=== PATIENT | female | born 1970 | race Caucasian/White ===

== ENCOUNTER → 2018-03-10 | Outpatient (CLI) | payer BC ==
[~2018-03-10] MED LIST: ZANTAC 7575 MG PO
== END ==
LOC: MC.RAD 08:20
DX: Z12.31 Encounter for screening mammogram for malignant neoplasm of breast (principal)

== ENCOUNTER 2018-03-13 01:27 | Emergency (ER) | payer BC ==
[2018-03-13 01:30] VITALS: BP 110/86; TEMP 97
[2018-03-13 01:44] LABS: COLLECTION METHOD CLEAN CATCH
[2018-03-13 01:52] LABS: MUCOUS Present /lpf; PH 6 (5-8); URINE APPEARANCE Hazy; URINE BACTERIA Rare /hpf; URINE BILIRUBIN Negative (NEGATIVE); URINE BLOOD 2+ (NEGATIVE); URINE COLOR Yellow; URINE GLUCOSE Negative (NEGATIVE); URINE KETONE Negative (NEGATIVE); URINE LEUKOCYTE ESTERASE 1+ (NEGATIVE); URINE NITRATE Negative (NEGATIVE); URINE PROTEIN(semi-quant) Negative (NEGATIVE); URINE UROBILINOGEN Negative (NEGATIVE)
[2018-03-13] MEDS ORDERED: COZAAR 25MG25 MG/TAB PO (01:54)
[2018-03-13] MEDS ORDERED: [UNRECOGNIZED DRUG - REMARK] (01:54)
[2018-03-13] MEDS ORDERED: NEXIUM 20MG20 MG PO (01:55)
[2018-03-13] MEDS ORDERED: [UNRECOGNIZED DRUG - REMARK] (01:55)
[2018-03-13] MEDS ORDERED: [UNRECOGNIZED DRUG - REMARK] (01:56)
[2018-03-13] MEDS ORDERED: ZYRTEC5 MG PO (01:57)
[2018-03-13] MEDS ORDERED: OMNICEF 300MG300 MG PO (02:08)
[2018-03-13 02:23] VITALS: PULSE 98
== END 2018-03-13 02:23 | disposition home or self-care (01) ==
LOC: COL.ER 01:27
PROVIDERS: Physician Assistant
DX: N12 Tubulo-interstitial nephritis, not specified as acute or chronic (principal)
CPT/HCPCS: J0696

== ENCOUNTER → 2018-09-01 | Outpatient (CLI) | payer BC ==
[~2018-09-01] MED LIST changes: +COZAAR 25MG25 MG/TAB PO; +COZAAR100 MG PO; +DESYREL 50MG50 MG PO; +EFFEXOR XR75 MG/CAP PO; +HCTZ 25MG TAB25 MG PO; +NEXIUM 20MG20 MG PO; +OMNICEF 300MG300 MG PO; +ZYRTEC5 MG PO; +[UNRECOGNIZED DRUG - REMARK]; +[UNRECOGNIZED DRUG - REMARK]; +[UNRECOGNIZED DRUG - REMARK]
== END ==
LOC: ZCOL.LAB 14:25
DX: J18.9 Pneumonia, unspecified organism (principal)

== ENCOUNTER → 2018-09-02 | Outpatient (CLI) | payer BC | LOC: COL.RAD 09:21 | DX: J18.9 Pneumonia, unspecified organism (principal); R79.89 Other specified abnormal findings of blood chemistry | CPT/HCPCS: Q9967 ==

== ENCOUNTER 2018-09-23 07:10 | Observation (INO) | payer BC ==
[~2018-09-23] VITALS: Ht 157.5 cm; Wt 80.6 kg
[2018-09-23] MEDS ORDERED: ZYRTEC 10MG10 MG PO (07:42)
[2018-09-23] MEDS ORDERED: PREDNISONE20 MG (07:42)
[2018-09-23] MEDS ORDERED: OMNICEF 300MG300 MG PO (07:42)
[2018-09-23] MEDS ORDERED: NEXIUM 20MG20 MG (07:42)
[2018-09-23] MEDS ORDERED: FLONASE NASAL S16 GM NS (07:43)
[2018-09-23] MEDS ORDERED: VENTOLIN0.09 MG IH (07:43)
[2018-09-23] MEDS ORDERED: ALBUTEROL0.83 MG/ML (07:43)
[2018-09-23 07:52] LABS: BASO % 0.2 % (0.0-2.0); GRAN # 4.1 (1.4-6.5); GRAN % 61.9 % (42.2-75.2); HEMATOCRIT 38.5 % (37.0-47.0); HEMOGLOBIN 13.8 g/dl (12.5-16.0); LYMPH # 2.1 (1.2-3.4); LYMPH % 31.9 % (20.0-51.0); MEAN CELL VOLUME 90 fl (80.0-100.0); MEAN CORPUSCULAR HEMOGLOBIN 32 pg (27.0-31.0); MEAN CORPUSCULAR HGB CONC 36 g/dl (33.0-37.0); MEAN PLATELET VOLUME 9.1 fl (7.4-10.4); MONO # 0.4 (0.1-0.6); MONO % 5.7 % (1.7-9.3); PLATELET COUNT 270 K/mm3 (130-400); RED BLOOD COUNT 4.28 M/mm3 (4.10-5.30)
[2018-09-23 08:06] LABS: ALANINE AMINOTRANSFERASE 42 U/L (9-52); ALKALINE PHOSPHATASE 118 U/L (50-136); ANION GAP 18 mmol/L (7-16); AST,SGOT 81 U/L (15-37); BILIRUBIN,TOTAL 0.7 mg/dL (0.0-1.0); BLOOD UREA NITROGEN 22 mg/dL (7-17); CALCIUM 8.7 mg/dL (8.4-10.2); CARBON DIOXIDE 20 mmol/L (22-30); CHLORIDE 91 mmol/L (98-107); GLUCOSE 195 mg/dL (74-106); MAGNESIUM 1.6 mg/dL (1.6-2.3); POTASSIUM 3.9 mmol/L (3.4-5.0); SODIUM 129 mmol/L (137-145); TOTAL PROTEIN 7.3 gm/dL (6.4-8.2)
[2018-09-23 08:07] LABS: C-REACTIVE PROTEIN 0.5 mg/dL (0.0-0.9)
[2018-09-23 08:11] LABS: INR 1.1 (0.8-3.0); PROTHROMBIN TIME 12.8 SECONDS (9.7-12.8)
[2018-09-23 08:14] LABS: PARTIAL THROMBOPLASTIN TIME 31.8 SECONDS (26.0-37.0)
[2018-09-23 08:15] LABS: TROPONIN-I < 0.012 ng/mL (0.000-0.035)
[2018-09-23 10:20] LABS: COLLECTION METHOD CLEAN CATCH
[2018-09-23 10:24] LABS: CALCIUM 7.6 mg/dL (8.4-10.2); CREATININE, serum 0.93 (0.52-1.25); POTASSIUM 3.9 mmol/L (3.4-5.0)
[2018-09-23 10:34] LABS: PH 7 (5-8); SQUAMOUS EPITHELIAL 0-2 /hpf; URINE APPEARANCE Clear; URINE BACTERIA None Seen /hpf; URINE BILIRUBIN Negative (NEGATIVE); URINE BLOOD Negative (NEGATIVE); URINE COLOR Yellow; URINE GLUCOSE Negative (NEGATIVE); URINE KETONE Negative (NEGATIVE); URINE LEUKOCYTE ESTERASE Negative (NEGATIVE); URINE NITRATE Negative (NEGATIVE); URINE PROTEIN(semi-quant) Negative (NEGATIVE); URINE RBC 0-2 /hpf; URINE UROBILINOGEN Negative (NEGATIVE)
[2018-09-23 11:06] LABS: STREP SCREEN NEGATIVE
[2018-09-23] MEDS ORDERED: DOXYCYCLINE 10100 MG (12:08)
--- NOTE | 2018-09-23 12:10 | NUR ---
Pt arrived to room 309 at this time. She is A/O x3. Her breathing is even and unlabored on RA. Pt has intermittent cough present. Denies any pain. Intermittent nausea present, will continue to clear liquid diet until pt is better tolerating PO. POC discussed with patient who verbalizes understanding. IVF started to RFA, will continue to monitor.
[2018-09-23 12:28] VITALS: BP 101/65; PULSE 69; TEMP 97.8
[2018-09-23 16:22] VITALS: BP 103/52; PULSE 97; TEMP 98.2
--- NOTE | 2018-09-23 18:39 | NUR ---
Pt report given to TEX Triana. Pt rested well since arriving to the floor. She reports vomitting but never visualized by nursing staff. PRN Babak administered. Pt reporting ZELAYA at this time. Attempting to eat dinner, baked potato and sprite. Pt encouraged to drink fluids but to avoid water. IVF infusing without complications. Pt denies needs at this time. Call light within reach.
[2018-09-23 19:25] VITALS: BP 105/55; PULSE 91; TEMP 98.2
--- NOTE | 2018-09-23 21:35 | NUR ---
Resting in bed. Assessment complete. Lungs clear. Heart sounds normal. Bowels active x4. Pulses strong throughout. No edema noted. IV to right forearm without complications. Denies pain. Denies needs at this time. Call light in reach.
[2018-09-23 23:32] VITALS: BP 107/54; PULSE 102; TEMP 98.7
--- NOTE | 2018-09-24 00:09 | NUR ---
Resting in bed. Call light in reach.
[2018-09-24 03:17] VITALS: BP 110/63; PULSE 66; TEMP 98.6
--- NOTE | 2018-09-24 06:06 | NUR ---
Patient had uneventful night. Provided with PRN motrin for headache x1 dose. Resting in bed this AM. Call light in reach.
[2018-09-24 07:04] LABS: MEAN CELL VOLUME 94 fl (80.0-100.0); MEAN CORPUSCULAR HGB CONC 34 g/dl (33.0-37.0); MEAN PLATELET VOLUME 9.7 fl (7.4-10.4); RED BLOOD COUNT 3.35 M/mm3 (4.10-5.30); REDCELL DISTRIBUTION WIDTH-CV 15.3 % (11.5-14.5)
[2018-09-24 07:16] VITALS: BP 116/61; PULSE 92; TEMP 97.7
[2018-09-24 07:18] LABS: HEMOGLOBIN A1C 6.7 %
[2018-09-24 07:20] LABS: CALCIUM 7.5 mg/dL (8.4-10.2); CREATININE, serum 0.94 (0.52-1.25); POTASSIUM 3.8 mmol/L (3.4-5.0)
--- NOTE | 2018-09-24 07:22 | NUR ---
Report given to TEX Davis
[2018-09-24 07:25] LABS: HEMATOCRIT 31.5 % (37.0-47.0); HEMOGLOBIN 10.8 g/dl (12.5-16.0); MEAN CORPUSCULAR HEMOGLOBIN 32 pg (27.0-31.0); PLATELET COUNT 168 K/mm3 (130-400)
[2018-09-24 07:39] LABS: LYMPHOCYTE 1 % (20.0-51.0); NEUTROPHILS 94 % (42.0-75.2); PLATELET ESTIMATE NORMAL (NORMAL)
[2018-09-24 07:50] LABS: LACTIC ACID 2.4 mmol/L (0.4-2.0)
--- NOTE | 2018-09-24 09:00 | NUR ---
Pt assessment complete. Pt sitting up on side of bed eating breakfast. Pt is A/O x3. Her breathing is even and unlabored on RA. Pt has occasional cough. She has occasional SOB. No pain at this time. Occasional N/V, pt ate most of breakfast this am without complications. IVF infusing without complications
--- NOTE | 2018-09-24 09:27 | NUR ---
SW attended clinical rounds to discuss discharge planning. 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 Patient's PCP is Dr Ortiz and she obtains prescriptions from [facility]. Patient does not use any DME or home health serivces. Patient does not have a DPOA. Patient will discharge later today. No discharge needs.
[2018-09-24 11:40] VITALS: BP 143/79; PULSE 93; TEMP 97.7
--- NOTE | 2018-09-24 11:43 | NUR ---
Initial visit; Patient thanked Bobbin Coil Winder for looking in on her though declined Spiritual Care at this time.
--- NOTE | 2018-09-24 12:47 | NUR ---
Discharge paperwork and instructions reviewed with patient, all questions answered at this time. IV to RFA dc'd, catheter tip intact.
--- NOTE | 2018-09-24 13:17 | NUR ---
Pt walked out of facility at this time.
== END 2018-09-24 13:17 | disposition home or self-care (01) ==
LOC: COL.ER 07:10 → MEDICAL 10:47
PROVIDERS: Emergency Medicine; Nurse Practitioner Family; ADMIT Internal Medicine
DX: R06.09 Other forms of dyspnea (principal); J32.9 Chronic sinusitis, unspecified; R91.1 Solitary pulmonary nodule; I10 Essential (primary) hypertension; E87.1 Hypo-osmolality and hyponatremia; F32.9 Major depressive disorder, single episode, unspecified; F41.9 Anxiety disorder, unspecified; K21.9 Gastro-esophageal reflux disease without esophagitis; E83.42 Hypomagnesemia; Z90.710 Acquired absence of both cervix and uterus; E66.9 Obesity, unspecified; Z79.51 Long term (current) use of inhaled steroids; F17.210 Nicotine dependence, cigarettes, uncomplicated
CPT/HCPCS: G0378; J1650; J1815; J1956; J2405; J2550; J2920; J2930; J7030; Q9967

== ENCOUNTER → 2018-12-30 | Emergency (ER) | payer BC ==
[~2018-12-30] VITALS: Ht 157.5 cm; Wt 55.5 kg
[~2018-12-30] MED LIST changes: +ALBUTEROL0.83 MG/ML; +DOXYCYCLINE 10100 MG; +FLONASE NASAL S16 GM NS; +NEXIUM 20MG20 MG; +PREDNISONE20 MG; +VENTOLIN0.09 MG IH; +ZYRTEC 10MG10 MG PO
[2018-12-30 17:12] VITALS: BP 146/96; PULSE 102; TEMP 98.6
== END ==
LOC: COL.ER 16:59
DX: Z02.83 Encounter for blood-alcohol and blood-drug test (principal)

== ENCOUNTER 2019-01-07 21:13 | Inpatient (IN) | payer BC ==
[~2019-01-07] VITALS: Ht 165.1 cm; Wt 66.4 kg
[2019-01-07 22:51] LABS: BASO # 0.1 (0.0-0.2); BASO % 0.7 % (0.0-2.0); EOS # 0.1 (0.0-0.7); EOS % 1.2 % (0-4.0); GRAN # 7.3 (1.4-6.5); GRAN % 70.5 % (42.2-75.2); HEMOGLOBIN 12.5 g/dl (12.5-16.0); LYMPH # 1.6 (1.2-3.4); LYMPH % 15.8 % (20.0-51.0); MEAN CELL VOLUME 93 fl (80.0-100.0); MEAN CORPUSCULAR HEMOGLOBIN 33 pg (27.0-31.0); MEAN CORPUSCULAR HGB CONC 35 g/dl (33.0-37.0); MEAN PLATELET VOLUME 10.2 fl (7.4-10.4); MONO # 1.2 (0.1-0.6); MONO % 11.4 % (1.7-9.3); PLATELET COUNT 256 K/mm3 (130-400); RED BLOOD COUNT 3.83 M/mm3 (4.10-5.30); REDCELL DISTRIBUTION WIDTH-CV 15.9 % (11.5-14.5)
[2019-01-07 22:53] LABS: HEMATOCRIT 35.7 % (37.0-47.0)
[2019-01-07 22:57] LABS: INR 1.2 (0.8-3.0); PROTHROMBIN TIME 13.5 SECONDS (9.7-12.8)
[2019-01-07 23:00] LABS: PARTIAL THROMBOPLASTIN TIME 32.8 SECONDS (26.0-37.0)
[2019-01-07 23:13] LABS: ALANINE AMINOTRANSFERASE 38 U/L (9-52); ALBUMIN 3.6 gm/dL (3.5-5.0); ALKALINE PHOSPHATASE 181 U/L (50-136); ANION GAP 16 mmol/L (7-16); AST,SGOT 86 U/L (15-37); BILIRUBIN,TOTAL 3.6 mg/dL (0.0-1.0); BLOOD UREA NITROGEN 9 mg/dL (7-17); CARBON DIOXIDE 21 mmol/L (22-30); CHLORIDE 100 mmol/L (98-107); CREATININE, serum 0.82 (0.52-1.25); GLUCOSE 104 mg/dL (74-106); SODIUM 137 mmol/L (137-145); TOTAL PROTEIN 7.4 gm/dL (6.4-8.2)
[2019-01-07 23:17] LABS: ACETAMINOPHEN < 10 ug/mL (10-30); ALCOHOL(ethanol),MEDICAL < 10 mg/dL; POTASSIUM 1.6 mmol/L (3.4-5.0)
[2019-01-07 23:19] LABS: COLLECTION METHOD CLEAN CATCH
[2019-01-07 23:23] LABS: TROPONIN-I < 0.012 ng/mL (0.000-0.035)
[2019-01-07 23:30] LABS: MUCOUS Present /lpf; PH 7 (5-8); URINE APPEARANCE Hazy; URINE BACTERIA Rare /hpf; URINE BILIRUBIN Negative (NEGATIVE); URINE BLOOD 1+ (NEGATIVE); URINE COLOR Yellow; URINE GLUCOSE Negative (NEGATIVE); URINE KETONE Negative (NEGATIVE); URINE LEUKOCYTE ESTERASE Negative (NEGATIVE); URINE NITRATE Negative (NEGATIVE); URINE PROTEIN(semi-quant) Negative (NEGATIVE); URINE RBC 0-2 /hpf; URINE UROBILINOGEN >=4.0 mg/dL (NEGATIVE)
[2019-01-07 23:31] LABS: TRICYCLIC ANTIDEPRESS URINE NEGATIVE
[2019-01-08] VITALS (8 sets, daily range): BP systolic 96–134; BP diastolic 61–91; PULSE 66–75; TEMP 97.5–98.2
[2019-01-08 00:02] LABS: MAGNESIUM 1.9 mg/dL (1.6-2.3)
--- NOTE | 2019-01-08 02:06 | NUR ---
Pt brought to Rm 354 via cot from ER. ER nurse reports pt confused. Pt unable to answer any questions. Let pt stand to transfer to bed. Unsure which way to lay down in bed. Covered with blankets and starts to snore. Potassium Chloride infusing at 100mL/hr. Bed alarm activated. Call light within reach.
--- NOTE | 2019-01-08 13:47 | NUR ---
SW's met with the patient to discuss discharge plan. The patient lives alone in [place]. She states that she left her job at the [employer] six months ago. She states that she has no family or family support around here, but that she has friend support. She reports independence with ADLs and does not have any DME. The patient's PCP is Dr. Elizabeth Ortiz and she receives her medications at the [facility]. She reports no difficulties obtaining her meds. The patient does not have advanced directives and she was not interested in completing them at this time. She states that her emergency contact and the person she would us to contact would be her friend, Janie Farmer (ph#[phone]). She states that Janie lives in [place] and works at [employer]. The patient has a history of depression. SW asked the patient if she sees or talks to anyone about her depression and mental health. The patient reports that she does not. The patient plans to return back home upon discharge. No other identified needs at this time, but SW to continue to follow.
[2019-01-08 14:54] LABS: CALCIUM 8.5 mg/dL (8.4-10.2); CREATININE, serum 0.62 (0.52-1.25)
--- NOTE | 2019-01-08 19:02 | NUR ---
PT RESTING IN BED DENIES PAIN, GETS UP TO BATHROOM FREQUENTLY, BOUT OF LOOSE STOOL NOTED, BUT UNABLE TO COLLECT SAMPLE. PT PLACED ON DETOX PROTOCOL PER HX GIVEN BY PCP. VSS. ATE 50% OF ALL MEALS. WILL CONTINUE TO MONITOR PT STATUS AND UPDATE PROVIDERS NEEDED.
--- NOTE | 2019-01-08 21:15 | NUR ---
Patient alert and oriented, with confusion on date and time. Easily redirected, but forgets quickly. Has been thinking it is morning, and calls about every hour requesting to call boss, but does not want to call boss until morning. Potassium rechecked with a result of 2.6. To be replaced per protocol. Denies having pain and discomfort. LR running at 125 ml/hr to peripheral IV to left AC. Site is without redness, warmth, swelling, and pain. Keeps beeping due to patient bending arm. Wrapped with NICO. When offered to start new IV, patient states she really doesnt want a new one started. LS CTA. Respirations even and unlabored. Denies SOB and dypsnea. HRR. Telemetry in place. BSAx4. Abdomen soft and non-tender. No edema. Voices no questions, needs, or concerns at this time. In bed with call light within reach.
[2019-01-09] VITALS (8 sets, daily range): BP systolic 95–141; BP diastolic 65–90; PULSE 57–78; TEMP 97–98.3
--- NOTE | 2019-01-09 06:09 | NUR ---
Patient has been awake most of the night. Has been pleasant, but confused on time. Needed very frequent reminders, about ever 15 minutes about time. Kept asking about breakfast. Continued to remind patient about the kitchen not opening until 0630 to take orders, and kept offering snacks available in nutrition room, but continued to decline. Voices no other needs or concerns. Patient has not had a BM, so stool was not obtained to take to lab. Denies having pain and discomfort. Denies having any questions, needs, or concerns, except for ordering breakfast at 0630. Call light is within reach.
[2019-01-09 07:57] LABS: BASO # 0.1 (0.0-0.2); BASO % 0.8 % (0.0-2.0); EOS # 0.1 (0.0-0.7); EOS % 1.7 % (0-4.0); GRAN # 5.5 (1.4-6.5); GRAN % 65.8 % (42.2-75.2); HEMOGLOBIN 11.8 g/dl (12.5-16.0); LYMPH # 1.6 (1.2-3.4); LYMPH % 19.1 % (20.0-51.0); MEAN CELL VOLUME 92 fl (80.0-100.0); MEAN CORPUSCULAR HEMOGLOBIN 32 pg (27.0-31.0); MEAN CORPUSCULAR HGB CONC 35 g/dl (33.0-37.0); MEAN PLATELET VOLUME 10.8 fl (7.4-10.4); MONO % 12.2 % (1.7-9.3); PLATELET COUNT 214 K/mm3 (130-400); RED BLOOD COUNT 3.68 M/mm3 (4.10-5.30); REDCELL DISTRIBUTION WIDTH-CV 15.7 % (11.5-14.5)
--- NOTE | 2019-01-09 08:00 | NUR ---
PT ALERT AND ORIENTED TO SELF AND LOCATION. PT DISORIENTED TO TIME AND SITUATION. PT HAVING SOME HALLUCINATIONS AND CONFUSION. PT DENIES ANY PAIN OR SOB. PT ON CWA PROTOCOL.
[2019-01-09 08:08] LABS: CALCIUM 8.5 mg/dL (8.4-10.2); CREATININE, serum 0.55 (0.52-1.25); POTASSIUM 3.2 mmol/L (3.4-5.0)
[2019-01-09 17:47] LABS: CALCIUM 8.2 mg/dL (8.4-10.2); CREATININE, serum 0.59 (0.52-1.25)
[2019-01-09 17:53] LABS: POTASSIUM 2.9 mmol/L (3.4-5.0)
--- NOTE | 2019-01-09 18:00 | NUR ---
NOTIFIED DR SHETTY OF RECENT POTASSIUM LEVEL OF 2.9.
--- NOTE | 2019-01-09 19:45 | NUR ---
Patient assessed at this time. Alert and oriented to person, place, and situation. Disoriented to date and time. Easily redirected for short periods of time. Patietn's gait is unsteady, swaying. Speech is slurred. Received PRN Ativan on previous shift. Denies having pain and discomfort. Peripheral IV to left AC. Received 20 meq potassium IV total, and changed to oral dose due to burning. Potassium protocol calls for 80 meq potassium to be replaced. To take 60 meq Potassium orally. LS CTA. Respirations even and unlabored. HRR. Telemetry monitoring in place. BSAx4. Abdomen soft and non-tender. No edema noted. Patient does have mulitple small bug bite areas to BLE, red, warm, and raised. Voices no questions, needs, or concerns. Resting in bed with call light within reach.
[2019-01-10] VITALS (9 sets, daily range): BP systolic 92–118; BP diastolic 51–97; PULSE 68–80; TEMP 97.6–98
--- NOTE | 2019-01-10 01:22 | NUR ---
Patient has been resting in bed most of the night soft far. Denies having pain and discomfort. Has had urinary incontinence. Potassium had been replaced per protocol. Patient to get recheck around 0230. Denies having any questions, needs, or concerns at this time. Call light is within reach.
--- NOTE | 2019-01-10 03:52 | NUR ---
Potassium recheck is 4.3 at this time.
--- NOTE | 2019-01-10 06:06 | NUR ---
Patient has been resting in bed with eyes closed. Awakens easily for VS to be checked, and goes back to sleep easily. Has been incontinent of bladder. Staff assists with changing and perineal hygiene care. Denies having any pain and discomfort. Voices no questions, needs, or concerns.
[2019-01-10 07:21] LABS: BASO # 0.1 (0.0-0.2); BASO % 0.9 % (0.0-2.0); EOS # 0.2 (0.0-0.7); EOS % 2.4 % (0-4.0); GRAN % 60.9 % (42.2-75.2); HEMOGLOBIN 10.8 g/dl (12.5-16.0); LYMPH # 1.6 (1.2-3.4); LYMPH % 24.1 % (20.0-51.0); MEAN CELL VOLUME 94 fl (80.0-100.0); MEAN CORPUSCULAR HEMOGLOBIN 32 pg (27.0-31.0); MEAN CORPUSCULAR HGB CONC 34 g/dl (33.0-37.0); MEAN PLATELET VOLUME 10.8 fl (7.4-10.4); MONO # 0.8 (0.1-0.6); MONO % 11.4 % (1.7-9.3); PLATELET COUNT 216 K/mm3 (130-400); RED BLOOD COUNT 3.34 M/mm3 (4.10-5.30); REDCELL DISTRIBUTION WIDTH-CV 16.2 % (11.5-14.5)
[2019-01-10 07:35] LABS: CALCIUM 8.3 mg/dL (8.4-10.2); CREATININE, serum 0.51 (0.52-1.25); POTASSIUM 3.9 mmol/L (3.4-5.0)
[2019-01-10 07:42] LABS: HEMATOCRIT 31.4 % (37.0-47.0)
--- NOTE | 2019-01-10 11:00 | NUR ---
Patient has been up several times in the room. Her gait is steady but she continues to be very confused. She keeps trying to call people for help and clean clothes but none of the numbers she is giving us are correct. NO complaints of pain or nausea. Patient also keeps thinking she is going home today. Explained that there is not plans at this time for discharge. NO other changes at this time. Call light within reach. Bed alarm on.
--- NOTE | 2019-01-10 11:37 | NUR ---
Patient was in pain and was very tired so I only stayed for a little bit.
--- NOTE | 2019-01-10 18:30 | NUR ---
Patient has been doing well this afternoon. She continues to be confused. She stated she is planning to go home tomorrow. No other changes at this time. Call light within reach. Bed alarm on.
--- NOTE | 2019-01-10 20:20 | NUR ---
Patient is alert and oriented to person, place, and situation. Disoriented to time. Has morning/night reversal. Easily redirected to time, but is very forgeful within 15 minutes. Keeps asking when she can go home. Reminded that the physician will see her in the morning and will hopefully know more about when she can discharge then. Voices understanding, but again, patient is forgetful. Patient has not been having hallucinations. Patient is not scoring high encough on detox protocol for interventions. Patient is much more alert tonight, speach clear and understandable, gait steady, and strength is much improved when in comparison to previous night. Peripheral IV to left AC flushed. Site is without redness, warmth, swelling, and pain. Denies SOB and dyspnea. LS CTA. Respirations even and unlabored. HRR. Telemetry monitoring in place. Capillary refill less than 3 seconds. Non-tenting skin turgor. BSAx4. Abdomen soft and non-tender. Has not had a BM to collect lab orders at this time. Collection device in bathroom. No edema. Does have multiple bug bites to BLE. Voices no questions, needs, or concerns at this time. Sitting on side of bed eattig snack at this time. Call light is within reach.
[2019-01-11] VITALS (11 sets, daily range): BP systolic 90–126; BP diastolic 51–83; PULSE 50–79; TEMP 97.7–98.5
--- NOTE | 2019-01-11 04:32 | NUR ---
Patient able to sleep for about half the night. Continues to have confusion on time, but redirected for short periods of time, 20-30 minutes. Gait is steady. States she will call for a ride home today. Reminded to wait and see what the physician says to see if she will be released today, and voices understanding. Resting in bed with call light within reach.
--- NOTE | 2019-01-11 08:47 | NUR ---
Patient sitting in bed upon assessment. States she is hopeful for discharge today. Denies having any pain at this time. No concerns other than wanting to go home. Patient has been steady on her feet throughout the night per report and so far this shift. Call light in reach.
[2019-01-11 11:13] LABS: BASO # 0.1 (0.0-0.2); BASO % 0.7 % (0.0-2.0); EOS # 0.1 (0.0-0.7); EOS % 1.7 % (0-4.0); GRAN # 5.1 (1.4-6.5); GRAN % 66.7 % (42.2-75.2); HEMOGLOBIN 11.7 g/dl (12.5-16.0); LYMPH # 1.6 (1.2-3.4); LYMPH % 20.6 % (20.0-51.0); MEAN CELL VOLUME 96 fl (80.0-100.0); MEAN CORPUSCULAR HEMOGLOBIN 33 pg (27.0-31.0); MEAN CORPUSCULAR HGB CONC 34 g/dl (33.0-37.0); MEAN PLATELET VOLUME 11.3 fl (7.4-10.4); MONO # 0.8 (0.1-0.6); MONO % 9.9 % (1.7-9.3); PLATELET COUNT 241 K/mm3 (130-400); RED BLOOD COUNT 3.58 M/mm3 (4.10-5.30); REDCELL DISTRIBUTION WIDTH-CV 16.3 % (11.5-14.5)
[2019-01-11 11:16] LABS: ALANINE AMINOTRANSFERASE 46 U/L (9-52); ALBUMIN 3.1 gm/dL (3.5-5.0); ALKALINE PHOSPHATASE 168 U/L (50-136); ANION GAP 8 mmol/L (7-16); AST,SGOT 94 U/L (15-37); BILIRUBIN,TOTAL 3.3 mg/dL (0.0-1.0); CALCIUM 8.6 mg/dL (8.4-10.2); CARBON DIOXIDE 21 mmol/L (22-30); CHLORIDE 103 mmol/L (98-107); GLUCOSE 98 mg/dL (74-106); POTASSIUM 4.3 mmol/L (3.4-5.0); SODIUM 132 mmol/L (137-145); TOTAL PROTEIN 6.9 gm/dL (6.4-8.2)
[2019-01-11 11:19] LABS: HEMATOCRIT 34.4 % (37.0-47.0)
[2019-01-11 11:20] LABS: BLOOD UREA NITROGEN < 2 mg/dL (7-17)
--- NOTE | 2019-01-11 15:02 | NUR ---
SW met with patient for referral of Detox. Patient reports that she has not had any alcohol or subtance use in 90 days. Patient labs support this scenerio. SW offered resources and gave print out of resources and supports. Patient declined needing any services of A&D.
--- NOTE | 2019-01-11 18:12 | NUR ---
Patient pulled out IV to left AC stating she had to go to the bathroom and did not know how to take the IV with her or call for help. IV catheter in tact. New IV placed to left hand on 3rd attempt.
[2019-01-11 19:33] LABS: CALCIUM 8.2 mg/dL (8.4-10.2); CREATININE, serum 0.6 (0.52-1.25); POTASSIUM 4.2 mmol/L (3.4-5.0)
--- NOTE | 2019-01-11 21:30 | NUR ---
Report received from TEX Garcia. Patient resting in bed. Assessment completed. Vitals within normal limits. Denies pain at this time. Alert and oriented. Denies any further needs at this time. Call light within reach.
--- NOTE | 2019-01-11 23:00 | NUR ---
Patient requests PRN tylenol for headache. States headache just started and "came out of no where". Call light within reach.
[2019-01-12] VITALS (7 sets, daily range): BP systolic 91–116; BP diastolic 49–77; PULSE 53–70; TEMP 97.9–98.7
--- NOTE | 2019-01-12 05:56 | NUR ---
Patient had uneventful night. Resting in bed. Had a CT with contrast done. Requested tylenol for a headache. Upon reassessment, headache had gone away. Denies any further needs at this time. Call light within reach.
[2019-01-12 06:48] LABS: BASO # 0.1 (0.0-0.2); BASO % 0.8 % (0.0-2.0); EOS # 0.2 (0.0-0.7); GRAN # 5.6 (1.4-6.5); GRAN % 70.2 % (42.2-75.2); HEMOGLOBIN 11.6 g/dl (12.5-16.0); LYMPH # 1.4 (1.2-3.4); LYMPH % 17.2 % (20.0-51.0); MEAN CELL VOLUME 94 fl (80.0-100.0); MEAN CORPUSCULAR HEMOGLOBIN 33 pg (27.0-31.0); MEAN CORPUSCULAR HGB CONC 35 g/dl (33.0-37.0); MEAN PLATELET VOLUME 10.9 fl (7.4-10.4); MONO # 0.7 (0.1-0.6); MONO % 9.3 % (1.7-9.3); PLATELET COUNT 231 K/mm3 (130-400); RED BLOOD COUNT 3.56 M/mm3 (4.10-5.30)
[2019-01-12 06:49] LABS: HEMATOCRIT 33.6 % (37.0-47.0)
--- NOTE | 2019-01-12 06:56 | NUR ---
Report given to TEX Rao
[2019-01-12 07:01] LABS: BILIRUBIN,DIRECT 2.6 mg/dL (0.0-0.4)
--- NOTE | 2019-01-12 07:40 | NUR ---
Patient in bed resting. Alert and oriented x 3. Shift assessment complete. Patient in dependent in room, steady gait. INT to left hand. Denies pain or further needs at this time.
[2019-01-12 07:55] LABS: CALCIUM 8.6 mg/dL (8.4-10.2); CREATININE, serum 0.55 (0.52-1.25); POTASSIUM 3.9 mmol/L (3.4-5.0)
--- NOTE | 2019-01-12 07:56 | NUR ---
Patient down for MRI
--- NOTE | 2019-01-12 08:40 | NUR ---
Patient in bed resting. Alert and oriented x 3. Shift assessment complete. Patient independent in room, steady gait. Denies pain at this time. Denies further needs at this time.
[2019-01-12] MEDS ORDERED: XIFAXAN550 MG PO (11:21)
[2019-01-12] MEDS ORDERED: THIAMINE 1100 MG/TAB PO (11:22)
[2019-01-12] MEDS ORDERED: FOLIC ACID 11 MG/TA1 PO (11:22)
[2019-01-12] MEDS ORDERED: K-DUR20 MEQ PO (11:23)
[2019-01-12] MEDS ORDERED: DUO-KAPS1 CAP PO (11:23)
--- NOTE | 2019-01-12 13:00 | NUR ---
Discharge education provided to patient and daughter. Patient educated on follow up appointments and all meds. Denies pain at this time. All questions answered. INT discontinued to left hand, catheter tip intact. Denies further needs at this time, patient ambulated out with daughter and surgical staff.
[2019-01-12 16:14] LABS: HEPATITIS B CORE AB,TOTAL Negative (()); HEPATITIS B SURFACE ANTIBODY <2.0 (())
[2019-01-12 16:32] LABS: FOLATE (FOLIC ACID) 8.9 ng/mL (7.0-31.4)
[2019-01-12 20:47] LABS: ANA SCREEN with REFLEX Negative (Negative)
[2019-01-13 03:47] LABS: CERULOPLASMIN 21 mg/dL (18-53)
[2019-01-13 10:01] LABS: ALPHA 1 ANTITRYPSIN TOTAL 171.6 mg/dL (())
[2019-01-13 11:20] LABS: HEPATITIS AB (HAV) IGG INDEX 0.66 Index (<=1.00)
[2019-01-14 15:29] LABS: ANTISMOOTH MUSCLE ANTIBODY Negative (Negative)
== END 2019-01-12 13:00 | disposition home or self-care (01) | DRG 641 ==
LOC: COL.ER 21:13 → MEDICAL 01-08 00:33
PROVIDERS: Internal Medicine Gastroenterology; Physician Assistant
DX: E87.6 Hypokalemia (principal); G93.40 Encephalopathy, unspecified; J45.909 Unspecified asthma, uncomplicated; F32.9 Major depressive disorder, single episode, unspecified; K72.90 Hepatic failure, unspecified without coma; K70.9 Alcoholic liver disease, unspecified; F17.210 Nicotine dependence, cigarettes, uncomplicated; K70.11 Alcoholic hepatitis with ascites; K21.9 Gastro-esophageal reflux disease without esophagitis; F10.10 Alcohol abuse, uncomplicated; E83.42 Hypomagnesemia; R26.9 Unspecified abnormalities of gait and mobility; Z90.710 Acquired absence of both cervix and uterus
CPT/HCPCS: 99222-AI; 99232-AI; 99239; A9585; J1650; J2060; J3475; J3480; J7120; Q9967

== ENCOUNTER 2019-01-17 20:59 | Inpatient (IN) | payer BC ==
[~2019-01-17] VITALS: Ht 157.5 cm; Wt 73.6 kg
[~2019-01-17 20:59] MED LIST changes: +DUO-KAPS1 CAP PO; +FOLIC ACID 11 MG/TA1 PO; +K-DUR20 MEQ PO; +THIAMINE 1100 MG/TAB PO; +XIFAXAN550 MG PO
[2019-01-17 21:43] LABS: BASO # 0.1 (0.0-0.2); BASO % 0.7 % (0.0-2.0); EOS # 0.3 (0.0-0.7); EOS % 2.4 % (0-4.0); GRAN # 9.1 (1.4-6.5); GRAN % 72.8 % (42.2-75.2); HEMOGLOBIN 10.5 g/dl (12.5-16.0); LYMPH # 1.9 (1.2-3.4); LYMPH % 15.4 % (20.0-51.0); MEAN CELL VOLUME 90 fl (80.0-100.0); MEAN CORPUSCULAR HEMOGLOBIN 31 pg (27.0-31.0); MEAN CORPUSCULAR HGB CONC 35 g/dl (33.0-37.0); MEAN PLATELET VOLUME 10.4 fl (7.4-10.4); MONO # 1.1 (0.1-0.6); MONO % 8.4 % (1.7-9.3); PLATELET COUNT 258 K/mm3 (130-400); RED BLOOD COUNT 3.34 M/mm3 (4.10-5.30); REDCELL DISTRIBUTION WIDTH-CV 15.9 % (11.5-14.5)
[2019-01-17 21:48] LABS: HEMATOCRIT 30.2 % (37.0-47.0)
[2019-01-17 21:49] LABS: ALBUMIN 2.6 gm/dL (3.5-5.0); BILIRUBIN,TOTAL 2.1 mg/dL (0.0-1.0); CALCIUM 7.9 mg/dL (8.4-10.2); CREATININE, serum 0.75 (0.52-1.25); MAGNESIUM 1.4 mg/dL (1.6-2.3); TOTAL PROTEIN 6.2 gm/dL (6.4-8.2)
[2019-01-17 21:56] LABS: POTASSIUM 2.8 mmol/L (3.4-5.0)
[2019-01-18] VITALS (7 sets, daily range): BP systolic 90–116; BP diastolic 57–71; PULSE 65–78; TEMP 98.1–98.5
--- NOTE | 2019-01-18 01:21 | NUR ---
Patient admitted to room 357 from ER. Arrived on [facility]. Accompanied by ER staff. Dry heaving and c/o being hot upon arrival. Reports it started during transfer while laying flat. Has hx of motion sickness. FVS WNL. Telemetry monitoring in place, no concerns from monitor. Symptoms resolved within 10 minuets. A/O x 4. attitude calm, pleasant and cooperative. Denies c/o pain or discomfort. No headache, dizziness, or chest Pain. Lung Sounds CTA throughout with good air exchange. heart rate and rhythm regular. NSR on telemetry. Magnesium 2G infusing @ 25ml/hr, Potasium 10MG/100ml infusing @ 100ml/hr, Bannana Bag 1000mls infusing @ 45ml/hr through 20G IV site in right forearm. Site WNL. Second IV site with 20G obtained in left AC without complications. Plan of care discussed with patient. All questions and concerns answered. Orientated to room, call light provided, encouraged patient to call when needing to get up verbalizes understanding. Discused Alcohol usage and previous instances of withdraw: patient denies any previous withdraw symptoms states "I only drinj 3-4 times per week but can go weeks without drink, I have even gone over a month without drink recently". Call to admitting physician Dr Krishnan see chart for orders received. Discussed Potassium infusing causing discomfort at insertion site and along vein, ago to run NS concurrent with potassium.
[2019-01-18 05:35] LABS: CALCIUM 7.6 mg/dL (8.4-10.2); CREATININE, serum 0.58 (0.52-1.25); POTASSIUM 3.6 mmol/L (3.4-5.0)
--- NOTE | 2019-01-18 08:17 | NUR ---
Pt awake and alert upon entry, no C/O pain at this time, talkative and appropiate, shift assessments complete, left Pt call light in reach, bed in lowest position.
[2019-01-18 10:39] LABS: CALCIUM 7.8 mg/dL (8.4-10.2); CREATININE, serum 0.65 (0.52-1.25)
--- NOTE | 2019-01-18 12:09 | NUR ---
SW met with the patient to discuss a discharge plan. The patient lives alone in [place]. The patient does not use DME and reports independence with ADLs. The patient's PCP is Dr. Ortiz and patient receives medications from [facility] with no difficulties. The patient does not have advanced directives in the EMR. The patient reports her emergency contact is Janie Farmer from [place], [place] . The patient reports her cousin Mike from [place] will be here on Saturday to assist her after hospitalization. The patient plans to return home upon discharge. If Mike is not here the patient will need a taxi voucher. loan services professional will continue to follow to ensure safe discharge.
[2019-01-18 16:22] LABS: CALCIUM 7.6 mg/dL (8.4-10.2); CREATININE, serum 0.76 (0.52-1.25); POTASSIUM 4.1 mmol/L (3.4-5.0)
[2019-01-18 17:36] LABS: COLLECTION METHOD CLEAN CATCH
[2019-01-18 17:43] LABS: MUCOUS Present /lpf; PH 7 (5-8); SQUAMOUS EPITHELIAL 0-2 /hpf; URINE APPEARANCE Clear; URINE BACTERIA None Seen /hpf; URINE BILIRUBIN Negative (NEGATIVE); URINE BLOOD Negative (NEGATIVE); URINE COLOR Yellow; URINE GLUCOSE Negative (NEGATIVE); URINE KETONE Negative (NEGATIVE); URINE LEUKOCYTE ESTERASE Negative (NEGATIVE); URINE NITRATE Negative (NEGATIVE); URINE PROTEIN(semi-quant) Negative (NEGATIVE); URINE RBC 0-2 /hpf; URINE UROBILINOGEN >=4.0 mg/dL (NEGATIVE); URINE WBC 0-2 /hpf
--- NOTE | 2019-01-18 18:48 | NUR ---
Pt resting today, some C/O pain in her lower extremities, edema is at a +2, VShave remained stable.
--- NOTE | 2019-01-18 19:11 | NUR ---
NO VTE ORDERED. VENOUS DOPPLER NOT COMPLETED D/T BEING THE WEEKEND. LOVENOX 60MG GIVEN IN ER. CALL TO ROBINSON DOWD. NOTIFIED OF NO VTE ORDER. WILL INVESTIGATE AND CALL BACK.
[2019-01-18 19:24] LABS: INR 1.2 (0.8-3.0)
[2019-01-19 00:07] VITALS: BP 109/63; PULSE 74; TEMP 98.3
[2019-01-19 03:24] VITALS: BP 99/60; PULSE 102; TEMP 97.7
[2019-01-19 06:28] LABS: MEAN CELL VOLUME 93 fl (80.0-100.0); MEAN CORPUSCULAR HGB CONC 34 g/dl (33.0-37.0); MEAN PLATELET VOLUME 10.7 fl (7.4-10.4); PLATELET COUNT 243 K/mm3 (130-400); RED BLOOD COUNT 2.94 M/mm3 (4.10-5.30); REDCELL DISTRIBUTION WIDTH-CV 16.2 % (11.5-14.5)
[2019-01-19 06:32] LABS: HEMATOCRIT 27.3 % (37.0-47.0); HEMOGLOBIN 9.3 g/dl (12.5-16.0); MEAN CORPUSCULAR HEMOGLOBIN 32 pg (27.0-31.0)
[2019-01-19 06:40] LABS: CALCIUM 7.7 mg/dL (8.4-10.2); CREATININE, serum 0.56 (0.52-1.25); POTASSIUM 3.6 mmol/L (3.4-5.0)
--- NOTE | 2019-01-19 07:00 | NUR ---
Report received from TEX Randhawa. PT in bed resting wants to leave today, will continue to moointor.
[2019-01-19 07:17] LABS: ANISOCYTOSIS 2+; EOSINOPHIL 2 % (0-4); LYMPHOCYTE 14 % (20.0-51.0); NEUTROPHILS 79 % (42.0-75.2); PLATELET ESTIMATE NORMAL (NORMAL)
[2019-01-19 07:49] VITALS: BP 96/58; PULSE 63; TEMP 98
--- NOTE | 2019-01-19 08:52 | NUR ---
Assessmetn charted. Pt requesing LAC INT to be removed per her request removed. R INT flushes well. BLE edema is 4+ but cap refill and warm and dry. Nicotene patch on L arm per reqeust. Discussed no smoking policy. Pt doing well, anticipating discharge today. Will contnue to monitor.
[2019-01-19 09:15] LABS: IRON,SERUM 77 ug/dL (35-150)
[2019-01-19 09:24] LABS: TOTAL IRON BINDING CAPACITY 135 ug/dL (265-497)
[2019-01-19 09:51] LABS: FERRITIN 361 ng/mL (11-264)
[2019-01-19 11:59] VITALS: BP 102/58; PULSE 65; TEMP 98.3
--- NOTE | 2019-01-19 15:47 | NUR ---
SW met with the patient to complete the Re-admission Interview. The patient recently discharged from the hospital, 01/12, and returned home with no services. The patient reports that she returned back to the emergency department after her legs started swelling. The patient did not follow up with her PCP prior to admission, due to the appointment being scheduled on 01/20. She states that she picked up her medications and took them all as prescribed, besides her Effexor. She states that med is for menopause and that she does not need it anymore. The patient reports that if she is able to discharge tomorrow, she will be moving to [place] afterwards. She states that her cousin, Mike Pop, will be coming to pick her up. She states that all her family is there and that her cousin is a nurse and will help get her established with primary care there. The patient had no other questions or concerns at this time. SW to continue to follow.
[2019-01-19 16:00] VITALS: BP 110/62; PULSE 78; TEMP 98.6
--- NOTE | 2019-01-19 19:22 | NUR ---
Report given to TEX Figueroa who will resume care. Pt has done well today, resting in room now, has ambulated well today around halls. Knee ADALBERTO hose in place. Pt urinating after being given spiranolactone. Nightshift to resume care.
[2019-01-19 19:41] VITALS: BP 103/64; PULSE 73; TEMP 98.9
[2019-01-20 00:21] VITALS: BP 106/66; PULSE 73; TEMP 98.2
[2019-01-20 04:30] VITALS: BP 95/62; PULSE 69; TEMP 98.1
[2019-01-20 05:46] LABS: BASO # 0.1 (0.0-0.2); BASO % 0.5 % (0.0-2.0); EOS # 0.3 (0.0-0.7); EOS % 3.3 % (0-4.0); GRAN # 6.8 (1.4-6.5); GRAN % 71.2 % (42.2-75.2); LYMPH # 1.8 (1.2-3.4); LYMPH % 18.4 % (20.0-51.0); MEAN CELL VOLUME 92 fl (80.0-100.0); MEAN CORPUSCULAR HGB CONC 34 g/dl (33.0-37.0); MONO # 0.6 (0.1-0.6); MONO % 6.4 % (1.7-9.3); PLATELET COUNT 202 K/mm3 (130-400); RED BLOOD COUNT 2.88 M/mm3 (4.10-5.30)
[2019-01-20 05:56] LABS: ALBUMIN 2.2 gm/dL (3.5-5.0); BILIRUBIN,TOTAL 2.1 mg/dL (0.0-1.0); CALCIUM 7.6 mg/dL (8.4-10.2); CREATININE, serum 0.48 (0.52-1.25); POTASSIUM 4.2 mmol/L (3.4-5.0); TOTAL PROTEIN 5.5 gm/dL (6.4-8.2)
[2019-01-20 05:58] LABS: HEMATOCRIT 26.6 % (37.0-47.0); MEAN CORPUSCULAR HEMOGLOBIN 31 pg (27.0-31.0)
--- NOTE | 2019-01-20 06:25 | NUR ---
Pt has had a quiet night. Walked down to snack machines several times during the night. Sam hose on and off during the night. Edema in bilat LE less this AM with 1-2+. States she feels better today. Call light withing reach.
[2019-01-20 07:28] VITALS: BP 105/71; PULSE 80; TEMP 98.2
[2019-01-20] MEDS ORDERED: ALDACTONE 25MG25 M1 PO (09:25)
[2019-01-20] MEDS ORDERED: K-TAB10 PO (09:27)
--- NOTE | 2019-01-20 09:38 | NUR ---
SW attended clinical rounds. The patient is to discharge today, 01/20. The patient is planning to move to [place] after she discharges. The patient's cousins plan to come pick her up. No additional needs at this time.
--- NOTE | 2019-01-20 10:03 | NUR ---
Pt assessment completed and charted. Pt denies pain, dizziness, SOB, N/V. Pt states legs are "tender but feel much better". BLE edema noted 3+. RFA INT IV flushes with no complications. Pt denies needs or concerns at this time. Pt to discharge. Awaiting discharge orders. Call light within reach.
--- NOTE | 2019-01-20 11:44 | NUR ---
Pt discharge instructions discussed and reviewed with patient who verbalizes understanding. All questions answered, no other concerns voiced at this time. RFA INT IV dc'd with catheter tip intact and no complications. Arm wrapped with coban. Pt ambulatory and escorted to medical records.
== END 2019-01-20 11:30 | disposition home or self-care (01) | DRG 947 ==
LOC: COL.ER 20:59 → MEDICAL 22:23
PROVIDERS: Emergency Medicine; Internal Medicine; Nurse Practitioner Family; ADMIT Student in an Organized Health Care Education/Training Program
DX: R60.9 Edema, unspecified (principal); E43 Unspecified severe protein-calorie malnutrition; Z68.44 Body mass index [BMI] 60.0-69.9, adult; E46 Unspecified protein-calorie malnutrition; E87.2 Acidosis; E87.6 Hypokalemia; I10 Essential (primary) hypertension; F41.9 Anxiety disorder, unspecified; K21.9 Gastro-esophageal reflux disease without esophagitis; F32.9 Major depressive disorder, single episode, unspecified; E83.42 Hypomagnesemia; F10.20 Alcohol dependence, uncomplicated; E66.9 Obesity, unspecified; F17.210 Nicotine dependence, cigarettes, uncomplicated; D64.9 Anemia, unspecified; K76.9 Liver disease, unspecified
CPT/HCPCS: 99232-AI; 99239; J1650; J2405; J3411; J3475; J3480; J7030